=== PATIENT | female | born 2005 | race Caucasian/White ===

== ENCOUNTER 2024-06-29 10:19 | Emergency (ER) | payer OTHER, MEDICAID, SELFPAY ==
[2024-06-29 10:29] VITALS: BP 127/89; PULSE 104; RESP 18; TEMP 37; O2SAT 99; BMI 19.5
--- NOTE | 2024-06-29 11:08 | ED_ITS ---
HPI - Dental/Oral General Chief complaint: Dental/Oral Stated complaint: cannot sleep, pain Time Seen by Provider: 06/29/24 11:02 Source: patient Mode of arrival: Ambulatory History of Present Illness HPI Narrative: Patient is a healthy 18-year-old female who presents today with left lower dental pain. She has an appointment with a dentist but the last 2 nights it has been keeping her up and she is unable to sleep. No swelling or fever. She has been taking Tylenol ibuprofen without any relief. Sudden times sensitive to heat and cold. But she is able to bite down. Related Data Previous Rx's Medication Instructions Recorded hydrocodone 5 mg-acetaminophen 325 1 tab PO Q6H PRN pain #10 tabs 06/29/24 mg tablet penicillin V potassium 500 mg 500 mg PO TID 7 days #21 tabs 06/29/24 tablet Patient History Social History Smoking Status: Never smoker Smoking Status: Never smoker Substance Use Type: does not use Exam Initial Vital Signs Initial Vital Signs: Vital Signs Temperature 98.6 F 06/29/24 10:29 Pulse Rate 104 H 06/29/24 10:29 Respiratory Rate 18 06/29/24 10:29 Blood Pressure 127/89 06/29/24 10:29 Pulse Oximetry 99 06/29/24 10:29 Oxygen Delivery Method Room Air 06/29/24 10:29 GENERAL: Well-appearing, well-nourished and in no acute distress. CARDIOVASCULAR: peripheral pulses in tact, cap refill <2 sec RESPIRATORY: No respiratory distress, speaks in full sentences without difficulty EXTREMITIES: Normal range of motion, no clubbing or edema. Neurovascularly intact NEUROLOGICAL: Cranial nerves II through XII grossly intact. Normal gait and speech. SKIN: Warm, dry, no petechiae, no rashes or lesions. HENMT Adult Head Mouth w/Numbe Teeth: 2 1. Probable dental charo noted but no dental abscess no trismus or facial swelling Course Vital Signs Vital signs: Vital Signs - 8 hr 06/29/24 10:29 Temperature 98.6 F Pulse Rate 104 H Respiratory Rate 18 Blood Pressure 127/89 Pulse Oximetry 99 Oxygen Delivery Method Room Air MDM - Dental/Oral MDM Narrative Medical decision making narrative: Well-appearing 18-year-old female presents today with dental pain. She has an appointment with a dentist but not for a little while. No obvious dental abscess or facial cellulitis. Will start her on antibiotics and give her stronger medication or pain. She was offered interpreted services but declined. Family at bedside spanish medical interpreter. But she does speak and understand Chinese. Discharge Plan Departure Patient Disposition: Home Clinical Impression: Toothache Instructions: DI for Dental Pain Activity Restrictions/Additional Instructions: *You have been diagnosed with dental cavity *What to do: Avoid extreme hot or cold foods *Continue to take medications as directed Motrin 600 mg every 6 hours for [place] pain Pen VK 500 mg 3 times a day 7 days [place] 1 tablet every 6 hours or at nighttime for extreme pain *Follow up with your primary care provider in 2-3 days or call [phone] *Return to ER if you should have increasing redness swelling pain or any new, worsening or concerning symptoms CONTROLLED SUBSTANCE DISCHARGE (Narcotoic/benzodiazepine/Flexeril/Phenergan) 1. You have been prescribed narcotic medications, it does have acetaminophen/Tylenol/paracetamol in it, DO NOT TAKE MORE THAN 4,00mg in 24 hours of Tylenol. TRAMADOL DOES NOT CONTAIN TYLENOL 2. Please understand that we cannot provide further refills of narcotics, benzodiazepines or controlled substances through the ED and her pain management will need to be through your provider. 3. While on these medications you cannot drive or operate heavy machinery. 4. You cannot sign legal documents or perform any duties such as this. 5. As long as you're taking opiate pain medications he should also be taking a stool softener such as Colace, Dulcolax, MiraLAX or prune juice, to help avoid constipation. Prescriptions: New hydrocodone-acetaminophen 5-325 mg tablet 1 tab PO Q6H PRN (Reason: pain) Qty: 10 0RF penicillin V potassium 500 mg tablet 500 mg PO TID 7 Days Qty: 21 0RF Stand Alone Forms: Patient Portal/API
== END 2024-06-29 11:15 | disposition home or self-care (01) ==
PROVIDERS: Emergency Provider Emergency Medicine
DX: K08.89 Other specified disorders of teeth and supporting structures (principal)
CPT/HCPCS: 99281